=== PATIENT | female | born 1935 | race Caucasian/White ===

== ENCOUNTER 2018-12-25 15:49 | Inpatient (IN) | payer MEDICARE | END 2018-12-28 16:10 | disposition home or self-care (01) | LOC: ER 15:49 → PCU 3S 12-26 07:05 → ED HOLD 21:26 | PROC: 0JH606Z Insertion of Pacemaker, Dual Chamber into Chest Subcutaneous Tissue and Fascia, Open Approach (ICD-10-PCS; principal; 2018-12-27 17:22) | PROC: 02HK3JZ Insertion of Pacemaker Lead into Right Ventricle, Percutaneous Approach (ICD-10-PCS; 2018-12-27 17:22) | PROC: 02H63JZ Insertion of Pacemaker Lead into Right Atrium, Percutaneous Approach (ICD-10-PCS; 2018-12-27 17:22) | DX: I49.5 Sick sinus syndrome (principal); I21.A1 Myocardial infarction type 2; I48.91 Unspecified atrial fibrillation; I10 Essential (primary) hypertension; D46.9 Myelodysplastic syndrome, unspecified ==